=== PATIENT | male | born 1945 | race Caucasian/White ===

== ENCOUNTER 2019-04-07 09:49 | Day surgery (SDC) | payer MEDICARE, MEDICAID ==
[~2019-04-07] VITALS: Ht 172.7 cm; Wt 73.9 kg
[~2019-04-07 09:49] MED LIST: ACET-897 PO; ATOR1TAB19 PO; BIMA01SOL; COLA100C5 PO; COSO1SOL3 OU; DILA100C PO; DITR5TAB PO; FLOM0.4C39 PO; GLUC1500 PO; KEFL500C17 PO; LACT10SO3 PO; LACT10SO7 FT; LAMI1TAB8 PO; LAMO200T2 PO; LEXA1TAB2 PO; MIRA3350 PO; MULT1TAB10 PO; MULTCAP PO; OXYB5TAB10 PO; PHEN50CH PO; PROPOFOL 200 MG/20 ML VIAL As Ordered ONE; REQU0.5T PO; REQU1TAB14 PO; SENN-85 PO; SENN8.6C PO; SERO50TA PO; TAMS0.4C2 PO; TIMO0.5S42 OU; TRAV04OPD OU; TUMS500C PO; TYLE500T78 PO; VERA120T2 PO; VERA120T4 PO; VITA200016 PO; XARE20TA PO; ZYPR10TA PO; ZYPR1INJ IM
[2019-04-07] MEDS ORDERED: NS 1,000 ML IV ONE (10:15)
[2019-04-07] MEDS ORDERED: PROPOFOL 200 MG/20 ML VIAL As Ordered ONE (10:30)
--- NOTE | 2019-04-07 11:22 | ROOR ---
Patient Name: Ishan Reynolds Procedure Date: 04/07/2019 10:53 AM Date of : 1945 Age: 74 Room: [facility] Gender: Male Note Status: Finalized Procedure: Colonoscopy Indications: High risk colon cancer surveillance: Personal history of colonic polyps, Last colonoscopy: April 2016 Providers: Dannie SOL MD Referring MD: ANIA GENTILE Requesting Provider: Medicines: Monitored Anesthesia Care Complications: No immediate complications. Procedure: Pre-Anesthesia Assessment: - The heart rate, respiratory rate, oxygen saturations, blood pressure, adequacy of pulmonary ventilation, and response to care were monitored throughout the procedure. The Colonoscope was introduced through the anus and advanced to the cecum, identified by appendiceal orifice and ileocecal valve. The colonoscopy was performed without difficulty. The patient tolerated the procedure well. The quality of the bowel preparation was good. Findings: The perianal and digital rectal examinations were normal. Two sessile polyps were found in the ascending colon and cecum. The polyps were diminutive in size. These polyps were removed with a cold snare. Resection and retrieval were complete. Two sessile polyps were found in the descending colon. The polyps were diminutive in size. These polyps were removed with a jumbo cold forceps. Resection and retrieval were complete. The colon (entire examined portion) was redundant. Small Internal Hemorrhoids. The exam was otherwise without abnormality on direct and retroflexion views. Impression: - Redundant colon. - Two diminutive polyps in the ascending colon and in the cecum, removed with a cold snare. Resected and retrieved. - Two diminutive polyps in the descending colon, removed with a jumbo cold forceps. Resected and retrieved. - Small Internal Hemorrhoids. - The examination was otherwise normal on direct and retroflexion views. Recommendation: - Telephone endoscopist for pathology results in 2 weeks. - Repeat colonoscopy in 3 - 5 years for surveillance based on pathology results. Dannie Sol MD Dannie SOL MD 04/07/2019 11:22:29 AM Electronically signed by Dannie SOL MD Number of Addenda: 0 Note Initiated On: 04/07/2019 10:53 AM Estimated Blood Loss: Estimated blood loss: none.
[2019-04-07 11:40] VITALS: BP 137/89
== END 2019-04-07 11:49 | disposition home or self-care (01) ==
LOC: M OPP 09:49
PROVIDERS: ATTEND Internal Medicine Gastroenterology
DX: D12.0 Benign neoplasm of cecum (principal); D12.2 Benign neoplasm of ascending colon; D12.4 Benign neoplasm of descending colon; Q43.8 Other specified congenital malformations of intestine; K64.8 Other hemorrhoids; Z86.010 Personal history of colon polyps

== ENCOUNTER → 2021-09-13 | Outpatient (CLI) | payer MEDICARE, MEDICAID ==
[~2021-09-13] MED LIST changes: -LAMO200T2 PO; +LAMO200T3 PO; -PROPOFOL 200 MG/20 ML VIAL As Ordered ONE; -VERA120T2 PO; -VERA120T4 PO; +VERA120T71 PO; +VERA120T9 PO
--- NOTE | 2021-09-13 09:57 | REP ---
INDICATION: UNILATERAL PRIMARY OSTEOARTHRITIS RT KNEE. COMPARISON: None. TECHNIQUE: Sagittal spin-echo proton density, T2 STIR and T2 FLASH. Coronal spin-echo proton density and fat suppressed proton density. Axial fat suppressed proton density. FINDINGS: The anterior and posterior horns of the lateral meniscus are within normal limits. Posterior horns of the medial meniscus is macerated. The anterior horn is markedly truncated with grade 1 and 2 signal changes within it. The anterior cruciate ligament is indistinct. The posterior cruciate ligament is bowed and redundant. The quadriceps and patellar tendons are intact. Mild T2 hyper signal is seen within the medial collateral ligament which is intact. There is a gap between the medial meniscus and medial collateral ligament with T2 hyper signal seen filling the gap. Patchy T2 hyper signal is seen in the lateral collateral ligament which is intact. The quadriceps and patellar tendons are intact. There is advanced thinning and irregularity of all articular cartilages. The articular surfaces of the medial compartment appear devoid of articular cartilage. There is a complex joint effusion. Multifocal signal voids are seen throughout the effusion. 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 There is fluid in the medial compartment and there is a concave deformity of the medial tibial plateau. There is advanced tricompartmental marginal osteophytosis. There is a symmetric patellofemoral joint space narrowing. Multiple cysts are seen in the posterior compartment. There is no Garcia's cyst IMPRESSION: 1. The anterior cruciate ligament is torn. 2. Medial meniscal maceration as described above. 3. Medial and lateral collateral ligamentous chronic sprain with medial meniscocapsular separation. 4. Complex joint effusion with likely loose intra-articular bodies. 5. 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 6. Advanced degenerative changes as described above. 7. Chronic posterior compartment cysts with no concomitant Garcia's cyst. 8. Parapatellar plica. 9. Other findings as described above. <Electronically signed by Kamran Flores > 09/13/21 [id number]
== END ==
LOC: M RAD 07:46
PROVIDERS: ATTEND Physician Assistant
DX: M17.11 Unilateral primary osteoarthritis, right knee (principal); S83.511A Sprain of anterior cruciate ligament of right knee, initial encounter; X58.XXXA Exposure to other specified factors, initial encounter; Y92.9 Unspecified place or not applicable; Y93.9 Activity, unspecified; Y99.9 Unspecified external cause status; M25.761 Osteophyte, right knee; M25.861 Other specified joint disorders, right knee

== ENCOUNTER → 2022-11-30 | Outpatient (CLI) | payer MEDICARE, MEDICAID ==
[~2022-11-30] MED LIST changes: +EFFE75CA2 PO; -PHEN50CH PO; +PHEN50CH2 PO; +ROPI0.5T3 PO; +VITA100093 PO; +VITMTA PO
== END ==
LOC: M LABSMTC 11:16
PROVIDERS: ATTEND Anesthesiology
DX: Z01.818 Encounter for other preprocedural examination (principal)

== ENCOUNTER 2022-12-05 08:14 | Day surgery (SDC) | payer MEDICARE, MEDICAID ==
[~2022-12-05] VITALS: Ht 172.7 cm; Wt 74.8 kg
[~2022-12-05 08:14] MED LIST changes: +NS 1,000 ML IV ONE
[2022-12-05] MEDS ORDERED: LIDOCAINE 2% 100MG/5ML SDV (FOR ANES.) As Ordered ONE (09:27)
[2022-12-05] MEDS ORDERED: propofoL 200 MG/20 ML VIAL As Ordered ONE (09:27)
[2022-12-05] MEDS ORDERED: ePHEDrine SULFATE 25 MG/5 ML(5MG/ML) SYRINGE As Ordered ONE (09:45)
[2022-12-05 10:25] VITALS: BP 138/92
== END 2022-12-05 10:38 | disposition home or self-care (01) ==
LOC: M OPP 08:14
PROVIDERS: ATTEND Internal Medicine Gastroenterology
DX: Z12.11 Encounter for screening for malignant neoplasm of colon (principal); Z86.010 Personal history of colon polyps; D12.5 Benign neoplasm of sigmoid colon; D12.4 Benign neoplasm of descending colon; D12.2 Benign neoplasm of ascending colon; D12.0 Benign neoplasm of cecum; K64.8 Other hemorrhoids; K63.89 Other specified diseases of intestine; Q43.8 Other specified congenital malformations of intestine; Z79.02 Long term (current) use of antithrombotics/antiplatelets; Z79.899 Other long term (current) drug therapy; Z88.6 Allergy status to analgesic agent; Z88.8 Allergy status to other drugs, medicaments and biological substances; N40.0 Benign prostatic hyperplasia without lower urinary tract symptoms; I73.00 Raynaud's syndrome without gangrene; G20 Parkinson's disease; I51.7 Cardiomegaly; Z86.718 Personal history of other venous thrombosis and embolism; Z86.69 Personal history of other diseases of the nervous system and sense organs

== ENCOUNTER 2024-01-03 10:24 | Emergency (ER) | payer MEDICARE, MEDICAID ==
[~2024-01-03 10:24] MED LIST changes: -COSO1SOL3 OU; +DORZ10DR10 OU; -NS 1,000 ML IV ONE; -OXYB5TAB10 PO; +OXYB5TAB14 PO; -ROPI0.5T3 PO; +ROPI0.5T33 PO
[2024-01-03 11:08] LABS: BASO % 0.6 % (0.0-1.0); HEMATOCRIT 42.2 % (42.0-52.0); LYMPH # 1.1 10^3/uL (1.5-5.0); LYMPH % 20.9 % (24.0-44.0); MEAN CORPUSCULAR HEMOGLOBIN 27.8 pg (27.0-33.0); MEAN CORPUSCULAR HGB CONC 33.2 g/dl (32.0-36.5); MEAN CORPUSCULAR VOLUME 83.7 fl (80.0-96.0); MONO # 0.5 10^3/uL (0.0-0.8); MONO % 9.4 % (2.0-8.0); NEUTROPHILS # 3.7 10^3/uL (1.5-8.5); NEUTROPHILS % 68.9 % (36.0-66.0); PLATELET COUNT, AUTOMATED 210 10^3/uL (150-450); RED BLOOD COUNT 5.04 10^6/uL (4.30-6.10); WHITE BLOOD COUNT 5.4 10^3/uL (4.0-10.0)
[2024-01-03 11:39] LABS: ALBUMIN 3.5 G/DL (3.2-5.2); ALKALINE PHOSPHATASE 153 U/L (46-116); ALT/SGPT 15 U/L (7.0-40); AST/SGOT 25 U/L (<34); BILIRUBIN,DIRECT < 0.1 MG/DL (<0.4); BILIRUBIN,TOTAL 0.2 MG/DL (0.3-1.2); BLOOD UREA NITROGEN 17 MG/DL (9-23); CALCIUM LEVEL 9.1 MG/DL (8.3-10.6); CARBON DIOXIDE LEVEL 30 MMOL/L (20-31); CHLORIDE LEVEL 103 MMOL/L (98-107); CREATININE FOR GFR 0.75 MG/DL (0.70-1.30); GLOMERULAR FILTRATION RATE > 60.0 (>35); GLUCOSE, FASTING 122 MG/DL (74-106); POTASSIUM SERUM 4.2 MMOL/L (3.5-5.1); SODIUM LEVEL 138 MMOL/L (136-145); TOTAL PROTEIN 6.9 G/DL (5.7-8.2)
[2024-01-03 11:47] LABS: THYROID STIMULATING HORMONE 3.242 uIU/ML (0.55-4.78)
[2024-01-03 11:51] LABS: CPK CREATINE PHOSPHOKINASE 91 U/L (46-171); MB/CK RELATIVE INDEX 1.09 (< OR =4)
[2024-01-03] MEDS: cefTRIAXone SOD 1 GM in D5W MINI-BAG PLUS 50 ML IV ONE (12:38)
[2024-01-03] MEDS ORDERED: CEFD1CAP9 PO (12:55)
[2024-01-03 13:05] VITALS: O2SAT 98
[2024-01-03 13:15] VITALS: BP 160/75; TEMP 96.5
== END 2024-01-03 13:27 | disposition home or self-care (01) ==
LOC: EDBD 10:24 → M ED 10:24
DX: N39.0 Urinary tract infection, site not specified (principal); I51.7 Cardiomegaly; J98.11 Atelectasis; I70.0 Atherosclerosis of aorta; I10 Essential (primary) hypertension; E78.5 Hyperlipidemia, unspecified; N40.0 Benign prostatic hyperplasia without lower urinary tract symptoms; F42.9 Obsessive-compulsive disorder, unspecified; F29 Unspecified psychosis not due to a substance or known physiological condition; F20.9 Schizophrenia, unspecified; Z86.718 Personal history of other venous thrombosis and embolism; Z79.01 Long term (current) use of anticoagulants; Z79.899 Other long term (current) drug therapy; Z88.8 Allergy status to other drugs, medicaments and biological substances
CPT/HCPCS: 70450; 71045; 80048; 80076; 81001; 82140; 82550; 82553; 84443; 84484; 85025; 87088; 87186; 93005; 93041; 94760; 96365; 99285; J0696

== ENCOUNTER → 2024-03-07 | Outpatient (REF) | payer MEDICARE, MEDICAID ==
[~2024-03-07] MED LIST changes: +CEFD1CAP9 PO
== END ==
LOC: M LAB REF 11:43
PROVIDERS: ATTEND Nurse Practitioner Family
DX: R30.0 Dysuria (principal)

== ENCOUNTER 2024-03-20 11:17 | Emergency (ER) | payer MEDICARE, MEDICAID ==
[~2024-03-20] VITALS: Ht 172.7 cm; Wt 75.0 kg
[2024-03-20 13:05] LABS: ALBUMIN 3.9 G/DL (3.2-5.2); ALKALINE PHOSPHATASE 157 U/L (46-116); ALT/SGPT 21 U/L (7.0-40); AST/SGOT 29 U/L (<34); BILIRUBIN,TOTAL 0.4 MG/DL (0.3-1.2); BLOOD UREA NITROGEN 20 MG/DL (9-23); CALCIUM LEVEL 9.4 MG/DL (8.3-10.6); CARBON DIOXIDE LEVEL 29 MMOL/L (20-31); CHLORIDE LEVEL 104 MMOL/L (98-107); CREATININE FOR GFR 0.86 MG/DL (0.70-1.30); GLOMERULAR FILTRATION RATE > 60.0 (>35); GLUCOSE, FASTING 79 MG/DL (74-106); POTASSIUM SERUM 4.8 MMOL/L (3.5-5.1); SODIUM LEVEL 140 MMOL/L (136-145); TOTAL PROTEIN 7.3 G/DL (5.7-8.2)
[2024-03-20 14:51] LABS: BASO % 0.5 % (0.0-1.0); HEMATOCRIT 40.6 % (42.0-52.0); HEMOGLOBIN 13.5 g/dl (13.5-17.5); LYMPH # 1.3 10^3/uL (1.5-5.0); LYMPH % 19.5 % (24.0-44.0); MEAN CORPUSCULAR HEMOGLOBIN 27.4 pg (27.0-33.0); MEAN CORPUSCULAR HGB CONC 33.3 g/dl (32.0-36.5); MEAN CORPUSCULAR VOLUME 82.4 fl (80.0-96.0); MONO # 0.7 10^3/uL (0.0-0.8); NEUTROPHILS # 4.6 10^3/uL (1.5-8.5); NEUTROPHILS % 68.7 % (36.0-66.0); PLATELET COUNT, AUTOMATED 184 10^3/uL (150-450); RED BLOOD COUNT 4.93 10^6/uL (4.30-6.10); WHITE BLOOD COUNT 6.6 10^3/uL (4.0-10.0)
[2024-03-20] MEDS ORDERED: ISOVUE-370 76% 100ML VIAL As Ordered ONE (15:15)
[2024-03-20] MEDS ORDERED: D-101000 PO (15:18)
[2024-03-20] MEDS ORDERED: CARB-113 PO (15:18)
[2024-03-20] MEDS ORDERED: DILA50HA PO (15:18)
[2024-03-20] MEDS ORDERED: MULTTAB61 PO (15:18)
[2024-03-20] MEDS ORDERED: FOLI1TAB11 PO (15:18)
[2024-03-20] MEDS ORDERED: DEBR6.5S4 AU (15:18)
[2024-03-20] MEDS ORDERED: TIMO0.5S39 OU (15:18)
[2024-03-20] MEDS ORDERED: POLY17PO18 PO (15:18)
[2024-03-20] MEDS ORDERED: VENL37.598 PO (15:18)
[2024-03-20] MEDS ORDERED: HOME MED LIST COMPLETE! XX SCH (15:20)
[2024-03-20] MEDS: NS 500 ML IV ONE (17:00)
[2024-03-20 18:17] LABS: CK-MB VALUE MASS 1.2 NG/ML (<3.6)
[2024-03-20 18:20] LABS: CPK CREATINE PHOSPHOKINASE 95 U/L (46-171); MB/CK RELATIVE INDEX 1.26 (< OR =4)
[2024-03-20 19:32] VITALS: BP 148/82; TEMP 97.7; O2SAT 94
== END 2024-03-20 19:33 | disposition home or self-care (01) ==
LOC: M ED 11:17
DX: R10.9 Unspecified abdominal pain (principal); I51.7 Cardiomegaly; E78.5 Hyperlipidemia, unspecified; N40.0 Benign prostatic hyperplasia without lower urinary tract symptoms; K57.92 Diverticulitis of intestine, part unspecified, without perforation or abscess without bleeding; F20.9 Schizophrenia, unspecified; Z79.01 Long term (current) use of anticoagulants; Z79.899 Other long term (current) drug therapy; Z88.8 Allergy status to other drugs, medicaments and biological substances
CPT/HCPCS: 71045; 74177; 80053; 80185; 81001; 82140; 82550; 82553; 83605; 84484; 85025; 93005; 96360; 96361; 99284; Q9967

== ENCOUNTER 2024-07-01 13:44 | Inpatient (IN) | payer MEDICARE, MEDICAID ==
[~2024-07-01] VITALS: Ht 172.7 cm; Wt 72.7 kg
[~2024-07-01 13:44] MED LIST changes: +CARB-113 PO; +D-101000 PO; +DEBR6.5S4 AU; +DILA50HA PO; +FOLI1TAB11 PO; +MULTTAB61 PO; +POLY17PO18 PO; +TIMO0.5S39 OU; +VENL37.598 PO
[2024-07-01 15:21] LABS: BASO % 0.9 % (0.0-1.0); EOS % 0.4 % (0.0-3.0); HEMATOCRIT 42.3 % (42.0-52.0); HEMOGLOBIN 14.1 g/dl (13.5-17.5); LYMPH # 1.2 10^3/uL (1.5-5.0); LYMPH % 25.3 % (24.0-44.0); MEAN CORPUSCULAR HEMOGLOBIN 27.9 pg (27.0-33.0); MEAN CORPUSCULAR HGB CONC 33.3 g/dl (32.0-36.5); MEAN CORPUSCULAR VOLUME 83.6 fl (80.0-96.0); MONO # 0.4 10^3/uL (0.0-0.8); MONO % 9.2 % (2.0-8.0); RED BLOOD COUNT 5.06 10^6/uL (4.30-6.10); WHITE BLOOD COUNT 4.7 10^3/uL (4.0-10.0)
[2024-07-01 15:51] LABS: ALBUMIN 3.8 G/DL (3.2-5.2); ALKALINE PHOSPHATASE 149 U/L (46-116); ALT/SGPT 20 U/L (7.0-40); AST/SGOT 34 U/L (<34); BILIRUBIN,DIRECT < 0.1 MG/DL (<0.4); BILIRUBIN,TOTAL 0.3 MG/DL (0.3-1.2); BLOOD UREA NITROGEN 13 MG/DL (9-23); CARBON DIOXIDE LEVEL 29 MMOL/L (20-31); CHLORIDE LEVEL 103 MMOL/L (98-107); CREATININE FOR GFR 0.87 MG/DL (0.70-1.30); GLOMERULAR FILTRATION RATE > 60.0 (>35); GLUCOSE, FASTING 81 MG/DL (74-106); POTASSIUM SERUM 4.5 MMOL/L (3.5-5.1); SODIUM LEVEL 138 MMOL/L (136-145); TOTAL PROTEIN 7.6 G/DL (5.7-8.2)
[2024-07-01 15:55] LABS: THYROID STIMULATING HORMONE 3.433 uIU/ML (0.55-4.78)
[2024-07-01] MEDS: DEXTROSE 50% 50ML SYRINGE IV STA ×2 (15:58→20:01)
[2024-07-01 16:13] LABS: CK-MB VALUE MASS < 1.0 NG/ML (<3.6)
[2024-07-01 16:18] LABS: CPK CREATINE PHOSPHOKINASE 92 U/L (46-171); MB/CK RELATIVE INDEX 1.08 (< OR =4)
[2024-07-01] MEDS ORDERED: ASPIRIN 325 MG TAB PO ONE (17:10)
[2024-07-01 17:35] LABS: CK-MB VALUE MASS < 1.0 NG/ML (<3.6)
[2024-07-01 17:38] LABS: CPK CREATINE PHOSPHOKINASE 89 U/L (46-171); MB/CK RELATIVE INDEX 1.12 (< OR =4)
[2024-07-01 17:43] LABS: RSV AMPLIFICATION NEGATIVE (NEGATIVE)
[2024-07-01 18:31] VITALS: O2SAT 97
[2024-07-01] MEDS: CEFEPIME HCL 2 GM in D5W MINI-BAG PLUS 50 ML IV ONE (18:52)
[2024-07-01] MEDS ORDERED: ACET1TAB55 PO (19:52)
[2024-07-01] MEDS ORDERED: HOME MED LIST COMPLETE! XX SCH (19:55)
[2024-07-01] MEDS ORDERED: DEXTROSE 50% 50ML SYRINGE IV PRN (20:30)
[2024-07-01] MEDS ORDERED: GLUCAGON INJ 1MG VIAL SC PRN (20:30)
[2024-07-01] MEDS ORDERED: GLUCOSE 4 GM CHEW PO PRN (20:30)
[2024-07-01] MEDS: TIMOLOL MALEATE 0.5% OPHTH SOLN 5 ML OU SCH (21:00)
[2024-07-01] MEDS: LATANOPROST 0.005% OPHTH SOLN 2.5 ML OU SCH (21:00)
[2024-07-01] MEDS ORDERED: PILL CUTTER 1 EACH XX PRN (23:40)
[2024-07-02] MEDS: ATORVASTATIN 10 MG TAB PO SCH (01:18)
[2024-07-02] MEDS: lamoTRIgine 100MG TAB PO SCH (01:18)
[2024-07-02] MEDS: SENNA 8.6 MG TAB (SENOKOT) PO SCH (01:18)
[2024-07-02] MEDS: TAMSULOSIN 0.4 MG CAP PO SCH (01:18)
[2024-07-02] MEDS: QUEtiapine FUMARATE 50MG TAB PO SCH (01:18)
[2024-07-02] MEDS: OLANZapine 10 MG TAB PO SCH (01:18)
[2024-07-02] MEDS: PHENYTOIN ER 100 MG CAP PO SCH (01:19)
[2024-07-02] MEDS: SINEMET 25-100 MG TAB PO SCH (01:21)
[2024-07-02] MEDS: rOPINIRole 0.25 MG TAB(REQUIP) PO SCH (01:22)
[2024-07-02] MEDS: REMDESIVIR 200 MG in NS 250 ML IV ONE (01:23)
[2024-07-02] MEDS: D5W/0.45% SODIUM CHLORIDE 1,000 ML IV SCH (01:23)
[2024-07-02 05:53] LABS: ALBUMIN 3.8 G/DL (3.2-5.2); ALKALINE PHOSPHATASE 161 U/L (46-116); ALT/SGPT 13 U/L (7.0-40); AST/SGOT 34 U/L (<34); BILIRUBIN,DIRECT < 0.1 MG/DL (<0.4); BILIRUBIN,TOTAL 0.3 MG/DL (0.3-1.2); GLUCOSE,RANDOM 80 MG/DL (LESS THAN 200); TOTAL PROTEIN 7.4 G/DL (5.7-8.2)
[2024-07-02] MEDS: cefTRIAXone SOD 1 GM in D5W MINI-BAG PLUS 50 ML IV SCH (06:00)
[2024-07-02 08:11] LABS: BASO % 0.8 % (0.0-1.0); HEMATOCRIT 41.4 % (42.0-52.0); HEMOGLOBIN 13.8 g/dl (13.5-17.5); LYMPH # 0.9 10^3/uL (1.5-5.0); LYMPH % 18.6 % (24.0-44.0); MEAN CORPUSCULAR HEMOGLOBIN 27.8 pg (27.0-33.0); MEAN CORPUSCULAR HGB CONC 33.3 g/dl (32.0-36.5); MEAN CORPUSCULAR VOLUME 83.5 fl (80.0-96.0); MONO # 0.6 10^3/uL (0.0-0.8); MONO % 12.1 % (2.0-8.0); NEUTROPHILS # 3.5 10^3/uL (1.5-8.5); NEUTROPHILS % 68.3 % (36.0-66.0); PLATELET COUNT, AUTOMATED 148 10^3/uL (150-450); RED BLOOD COUNT 4.96 10^6/uL (4.30-6.10); WHITE BLOOD COUNT 5.1 10^3/uL (4.0-10.0)
[2024-07-02 08:35] LABS: BLOOD UREA NITROGEN 12 MG/DL (9-23); CALCIUM LEVEL 8.8 MG/DL (8.3-10.6); CARBON DIOXIDE LEVEL 28 MMOL/L (20-31); CHLORIDE LEVEL 108 MMOL/L (98-107); CREATININE FOR GFR 0.76 MG/DL (0.70-1.30); GLOMERULAR FILTRATION RATE > 60.0 (>35); GLUCOSE, FASTING 115 MG/DL (74-106); MAGNESIUM LEVEL 2.1 MG/DL (1.8-2.4); POTASSIUM SERUM 4.1 MMOL/L (3.5-5.1); SODIUM LEVEL 142 MMOL/L (136-145)
[2024-07-02] MEDS: MIRALAX *UNIT DOSE* 17GM PACKET PO SCH (09:00)
[2024-07-02] MEDS: VENLAFAXINE **XR** 37.5 MG CAPSULE PO SCH (09:07)
[2024-07-02] MEDS: oxyBUTYnin 5 MG TAB PO SCH (09:07)
[2024-07-02] MEDS: RIVAROXABAN 20MG TAB (XARELTO) PO SCH (09:08)
[2024-07-02] MEDS: VENLAFAXINE **XR** 75MG CAPSULE PO SCH (09:08)
[2024-07-02] MEDS: DOCUSATE SODIUM 100MG CAPSULE PO SCH (09:08)
[2024-07-02] MEDS: FOLIC ACID 1MG TAB PO SCH (09:08)
[2024-07-02] MEDS: VERAPAMIL 120MG SR TAB PO SCH (09:44)
[2024-07-02 09:56] VITALS: BP 154/72; O2SAT 97
[2024-07-02 13:45] VITALS: BP 141/78; TEMP 98; O2SAT 98
[2024-07-02 17:02] VITALS: BP 146/75; TEMP 97; O2SAT 87
[2024-07-02 19:30] VITALS: BP 140/62; TEMP 97.3; O2SAT 95
[2024-07-02] MEDS: REMDESIVIR 100 MG in NS 250 ML IV SCH (20:27)
[2024-07-03 04:20] VITALS: BP 149/67; TEMP 97.2; O2SAT 91
[2024-07-03 05:58] LABS: BASO % 0.7 % (0.0-1.0); HEMATOCRIT 39.5 % (42.0-52.0); HEMOGLOBIN 12.9 g/dl (13.5-17.5); LYMPH # 1.3 10^3/uL (1.5-5.0); LYMPH % 21.6 % (24.0-44.0); MEAN CORPUSCULAR HEMOGLOBIN 27.4 pg (27.0-33.0); MEAN CORPUSCULAR HGB CONC 32.7 g/dl (32.0-36.5); MEAN CORPUSCULAR VOLUME 83.9 fl (80.0-96.0); MONO # 0.9 10^3/uL (0.0-0.8); MONO % 14.5 % (2.0-8.0); NEUTROPHILS # 3.8 10^3/uL (1.5-8.5); PLATELET COUNT, AUTOMATED 163 10^3/uL (150-450); RED BLOOD COUNT 4.71 10^6/uL (4.30-6.10)
[2024-07-03 06:25] LABS: ALKALINE PHOSPHATASE 140 U/L (46-116); ALT/SGPT 17 U/L (7.0-40); AST/SGOT 23 U/L (<34); BILIRUBIN,TOTAL 0.2 MG/DL (0.3-1.2); BLOOD UREA NITROGEN 12 MG/DL (9-23); CALCIUM LEVEL 8.5 MG/DL (8.3-10.6); CARBON DIOXIDE LEVEL 28 MMOL/L (20-31); CHLORIDE LEVEL 107 MMOL/L (98-107); GLOMERULAR FILTRATION RATE > 60.0 (>35); GLUCOSE, FASTING 78 MG/DL (74-106); POTASSIUM SERUM 4.2 MMOL/L (3.5-5.1); SODIUM LEVEL 140 MMOL/L (136-145); TOTAL PROTEIN 6.2 G/DL (5.7-8.2)
[2024-07-03 12:00] VITALS: BP 142/67; TEMP 97.2; O2SAT 97
[2024-07-03] MEDS ORDERED: CEFD1CAP9 PO (12:45)
[2024-07-03] MEDS ORDERED: D5W 1,000 ML IV SCH (13:10)
[2024-07-03] MEDS: D5W 1,000 ML IV SCH (17:31)
[2024-07-03 20:50] VITALS: BP 140/90; TEMP 97.2; O2SAT 96
[2024-07-04 04:00] VITALS: BP 139/84; TEMP 97.7; O2SAT 97
[2024-07-04 05:40] LABS: BASO % 0.7 % (0.0-1.0); HEMATOCRIT 39.2 % (42.0-52.0); HEMOGLOBIN 13.1 g/dl (13.5-17.5); LYMPH # 1.2 10^3/uL (1.5-5.0); LYMPH % 21.5 % (24.0-44.0); MEAN CORPUSCULAR HEMOGLOBIN 27.4 pg (27.0-33.0); MEAN CORPUSCULAR HGB CONC 33.4 g/dl (32.0-36.5); MONO # 0.8 10^3/uL (0.0-0.8); MONO % 14.4 % (2.0-8.0); NEUTROPHILS # 3.5 10^3/uL (1.5-8.5); NEUTROPHILS % 63.2 % (36.0-66.0); PLATELET COUNT, AUTOMATED 155 10^3/uL (150-450); RED BLOOD COUNT 4.78 10^6/uL (4.30-6.10); WHITE BLOOD COUNT 5.5 10^3/uL (4.0-10.0)
[2024-07-04 06:05] LABS: ALBUMIN 3.1 G/DL (3.2-5.2); ALKALINE PHOSPHATASE 140 U/L (46-116); ALT/SGPT 18 U/L (7.0-40); AST/SGOT 21 U/L (<34); BILIRUBIN,TOTAL 0.3 MG/DL (0.3-1.2); BLOOD UREA NITROGEN 15 MG/DL (9-23); CALCIUM LEVEL 8.8 MG/DL (8.3-10.6); CARBON DIOXIDE LEVEL 28 MMOL/L (20-31); CHLORIDE LEVEL 103 MMOL/L (98-107); CREATININE FOR GFR 0.81 MG/DL (0.70-1.30); GLOMERULAR FILTRATION RATE > 60.0 (>35); GLUCOSE, FASTING 87 MG/DL (74-106); MAGNESIUM LEVEL 1.8 MG/DL (1.8-2.4); POTASSIUM SERUM 4.1 MMOL/L (3.5-5.1); SODIUM LEVEL 136 MMOL/L (136-145); TOTAL PROTEIN 6.2 G/DL (5.7-8.2)
[2024-07-04 08:35] VITALS: BP 131/67
[2024-07-04 12:00] VITALS: BP 113/61; TEMP 97.7; O2SAT 100
[2024-07-04] MEDS ORDERED: BLOOKIT21 XX (16:18)
[2024-07-04] MEDS ORDERED: GLUC1TES2 XX (16:18)
[2024-07-04] MEDS ORDERED: LANC30MI XX (16:18)
[2024-07-04] MEDS ORDERED: DEXT4TAB83 PO (16:20)
[2024-07-04] MEDS ORDERED: ACCUKIT10 XX (17:10)
[2024-07-04] MEDS ORDERED: BLOO-76 MC (17:10)
== END 2024-07-04 18:00 | disposition other institution (70) | DRG 178 ==
LOC: M ED 13:44 → EDBD 13:44 → M ED INP 20:26 → M MSPAV 07-02 16:53
PROVIDERS: ADMIT Family Medicine; ATTEND Internal Medicine Nephrology
PROC: XW033E5 Introduction of Remdesivir Anti-infective into Peripheral Vein, Percutaneous Approach, New Technology Group 5 (ICD-10-PCS; principal; 2024-07-02)
DX: U07.1 COVID-19 (principal); N39.0 Urinary tract infection, site not specified; G20.C Parkinsonism, unspecified; E78.5 Hyperlipidemia, unspecified; F20.9 Schizophrenia, unspecified; F42.9 Obsessive-compulsive disorder, unspecified; F71 Moderate intellectual disabilities; G40.909 Epilepsy, unspecified, not intractable, without status epilepticus; K59.00 Constipation, unspecified; H40.9 Unspecified glaucoma; E55.9 Vitamin D deficiency, unspecified; I73.00 Raynaud's syndrome without gangrene; I10 Essential (primary) hypertension; N40.0 Benign prostatic hyperplasia without lower urinary tract symptoms; G25.81 Restless legs syndrome; E16.2 Hypoglycemia, unspecified; Z86.718 Personal history of other venous thrombosis and embolism; Z79.899 Other long term (current) drug therapy; Z88.8 Allergy status to other drugs, medicaments and biological substances; Z66 Do not resuscitate

== ENCOUNTER 2024-09-04 14:36 | Emergency (ER) | payer MEDICARE, MEDICAID ==
[~2024-09-04] VITALS: Ht 170.2 cm; Wt 75.0 kg
[~2024-09-04 14:36] MED LIST changes: +ACCUKIT10 XX; +ACET1TAB55 PO; +BLOO-76 MC; +BLOOKIT21 XX; +DEXT4TAB83 PO; +GLUC1TES2 XX; +LANC30MI XX
[2024-09-04 16:21] LABS: BASO % 0.6 % (0.0-1.0); HEMATOCRIT 39.5 % (42.0-52.0); HEMOGLOBIN 13.3 g/dl (13.5-17.5); LYMPH # 1.6 10^3/uL (1.5-5.0); LYMPH % 33.2 % (24.0-44.0); MEAN CORPUSCULAR HEMOGLOBIN 28.2 pg (27.0-33.0); MEAN CORPUSCULAR HGB CONC 33.7 g/dl (32.0-36.5); MEAN CORPUSCULAR VOLUME 83.7 fl (80.0-96.0); MONO # 0.8 10^3/uL (0.0-0.8); MONO % 15.3 % (2.0-8.0); NEUTROPHILS # 2.5 10^3/uL (1.5-8.5); NEUTROPHILS % 50.7 % (36.0-66.0); PLATELET COUNT, AUTOMATED 152 10^3/uL (150-450); RED BLOOD COUNT 4.72 10^6/uL (4.30-6.10); WHITE BLOOD COUNT 4.9 10^3/uL (4.0-10.0)
[2024-09-04 16:45] LABS: LIPASE 33 U/L (12-53)
[2024-09-04 16:46] LABS: AMYLASE 87 U/L (30-118)
[2024-09-04 16:47] LABS: ALBUMIN 3.7 G/DL (3.2-5.2); ALKALINE PHOSPHATASE 135 U/L (40-129); ALT/SGPT 17 U/L (7.0-40); AST/SGOT 21 U/L (<34); BILIRUBIN,DIRECT < 0.1 MG/DL (<0.4); BILIRUBIN,TOTAL 0.3 MG/DL (0.3-1.2); BLOOD UREA NITROGEN 14 MG/DL (9-23); CALCIUM LEVEL 9.3 MG/DL (8.3-10.6); CARBON DIOXIDE LEVEL 30 MMOL/L (20-31); CHLORIDE LEVEL 105 MMOL/L (98-107); CREATININE FOR GFR 0.79 MG/DL (0.70-1.30); GLOMERULAR FILTRATION RATE > 60.0 (>35); GLUCOSE, FASTING 60 MG/DL (74-106); POTASSIUM SERUM 4.3 MMOL/L (3.5-5.1); SODIUM LEVEL 138 MMOL/L (136-145); TOTAL PROTEIN 7.7 G/DL (5.7-8.2)
[2024-09-04 17:30] VITALS: BP 181/84; TEMP 96.7; O2SAT 97
[2024-09-04] MEDS ORDERED: ONDA-282 PO (17:30)
== END 2024-09-04 18:00 | disposition home or self-care (01) ==
LOC: M ED 14:36
DX: R19.7 Diarrhea, unspecified (principal); R11.10 Vomiting, unspecified; I10 Essential (primary) hypertension; F20.9 Schizophrenia, unspecified; Z86.718 Personal history of other venous thrombosis and embolism; Z79.899 Other long term (current) drug therapy; Z88.8 Allergy status to other drugs, medicaments and biological substances